=== PATIENT | male | born 1950 | race Caucasian/White ===

== ENCOUNTER → 2021-11-26 | Outpatient (CLI) | payer MEDICARE, BC | END | disposition home or self-care (01) | LOC: PREOP 05:24 | PROVIDERS: ATTEND Podiatrist Foot & Ankle Surgery | DX: Z01.818 Encounter for other preprocedural examination (principal) ==

== ENCOUNTER 2022-02-26 05:19 | Outpatient (CLI) | payer MEDICARE ==
[~2022-02-26] VITALS: Ht 200 cm; Wt 127.0 kg
[2022-02-26] MEDS ORDERED: B/P PILL (12:38)
[2022-02-26] MEDS ORDERED: METF-397 PO (12:38)
[2022-02-26] MEDS ORDERED: GABA-490 PO (12:38)
== END 2022-02-26 12:58 | disposition home or self-care (01) ==
LOC: PREOP 05:19
PROVIDERS: ATTEND Podiatrist Foot & Ankle Surgery
DX: Z01.818 Encounter for other preprocedural examination (principal)

== ENCOUNTER 2022-03-04 05:51 | Day surgery (SDC) | payer MEDICARE ==
[2022-03-04] VITALS (10 sets, daily range): BP systolic 101–136; BP diastolic 55–90
[~2022-03-04] VITALS: Ht 200 cm; Wt 127.0 kg
[~2022-03-04 05:51] MED LIST: B/P PILL; GABA-490 PO; METF-397 PO
[2022-03-04] MEDS ORDERED: ceFAZolin INJECTION 1,000 MG in NS (IVPB) 50 ML IV ONE (06:15)
[2022-03-04] MEDS ORDERED: FINA5TAB6 PO (06:59)
[2022-03-04] MEDS ORDERED: LISI10TA25 PO (06:59)
[2022-03-04] MEDS ORDERED: MTP25TSR PO (06:59)
[2022-03-04] MEDS ORDERED: ASPI-999 PO (06:59)
[2022-03-04] MEDS ORDERED: TMSL.4C PO (06:59)
[2022-03-04] MEDS ORDERED: METF-399 PO (06:59)
[2022-03-04] MEDS ORDERED: GBPN600T PO (06:59)
[2022-03-04] MEDS ORDERED: SPIR25TA5 PO (06:59)
[2022-03-04] MEDS: LACTATED RINGERS 1,000 ML IV PRN ×2 (07:04→09:20)
[2022-03-04] MEDS ORDERED: MIDAZOLAM 2 MG/2 ML (VERSED) VIAL ONE (07:12)
[2022-03-04] MEDS ORDERED: LIDOCAINE PF 2% 5 ML (XYLOCAINE) VIAL ONE (07:12)
[2022-03-04] MEDS ORDERED: proPOfol 200 MG/20 ML (DIPRIVAN) VIAL IV ONE ×2 (07:12→08:22)
[2022-03-04] MEDS ORDERED: SEVOFLURANE (ULTANE) 15 ML INHAL SOLN ONE ×2 (07:12→10:10)
[2022-03-04] MEDS ORDERED: fentaNYL INJ 100 MCG/2 ML AMP ONE (07:12)
[2022-03-04] MEDS ORDERED: BUPIVACAINE 0.5% 30 ML (SENSORCAINE) VIAL ONE (07:27)
[2022-03-04] MEDS ORDERED: LIDOCAINE 1% INJ 20 ML VIAL ONE (07:27)
--- NOTE | 2022-03-04 07:51 | Progress Note-Pre Operative ---
Pre-Operative Progress Note Date of Available H&P: Mar 04, 2022 Date H&P Reviewed: Mar 04, 2022 Time H&P Reviewed: 07:50 Pre-Operative Diagnosis: Hallux Rigidus, 2nd hammertoe, right foot FLORINA HANCOCK DPM Mar 04, 2022 07:51
[2022-03-04] MEDS ORDERED: ONDANSETRON 4 MG/2 ML (SDV) Z0FRAN ONE (08:22)
--- NOTE | 2022-03-04 10:36 | Progress Note-Post Operative ---
Post-Operative Progess Note Surgeon (s)/Catering Director (s) Surgeon FLORINA HANCOCK DPM Catering Director: none Pre-Operative Diagnosis Hallux Rigidus, 2nd hammertoe, right foot Post-Operative Diagnosis Same plus hypertrophic 2nd metatarsal, arthritis, gout Procedure & Operative Findings Date of Procedure 03/04/22 Procedure Performed/Findings Cheilectomy, Arthrodesis of the interphalangeal joint hallux, 2nd metatarsal osteotomy, reduction of 2nd hammertoe, all right foot. Anesthesia Type general Estimated Blood Loss Estimated blood loss (mL): minimal Specimens/Packing Specimens Removed right 1st metatarsal head bone and tophi FLORINA HANCOCK DPM Mar 04, 2022 10:36
[2022-03-04] MEDS ORDERED: ACHD5005 PO (10:39)
[2022-03-04] MEDS ORDERED: CEPH500C PO (10:39)
--- NOTE | 2022-03-04 10:39 | Anesthesia-General Post-Op ---
General Patient Condition Mental Status/LOC: Same as Preop Cardiovascular: Satisfactory Nausea/Vomiting: Absent Respiratory: Satisfactory Pain: Controlled Complications: Absent Post Op Complications Complications None Follow Up Care/Instructions Patient Instructions None needed. Anesthesia/Patient Condition Patient Condition Patient is doing well, no complaints, stable vital signs, no apparent adverse anesthesia problems. No complications reported per nursing. WILLI BRUNER CRNA Mar 04, 2022 10:39
[2022-03-04] MEDS ORDERED: fentaNYL INJ 100 MCG/2 ML AMP IVP ONE (10:45)
[2022-03-04] MEDS ORDERED: HYDROcodone/APAP 5 MG/325 MG (LORTAB) TAB PO PRN (10:45)
[2022-03-04] MEDS ORDERED: ONDANSETRON 4 MG/2 ML (SDV) Z0FRAN IVP PRN (10:45)
[2022-03-04] MEDS ORDERED: LACTATED RINGERS 1,000 ML IV SCH (10:45)
--- NOTE | 2022-03-04 11:08 | Diagnostic Imaging Report ---
INDICATION: Right foot pain. IMPRESSION: Two views of the right foot show post surgical changes from pinning of the interphalangeal joints of the 1st and 2nd toes. The patient has had an osteotomy of the interphalangeal joint of the big toe and the distal aspect of the proximal phalanx of the 2nd toe. IMPRESSION: Good alignment of the 1st and 2nd toes following osteotomies and internal fixation. Dictated by: Dictated on workstation # [id number]
[2022-03-04] MEDS ORDERED: HYDROcodone/APAP 5 MG/325 MG (LORTAB) TAB ONE (12:07)
--- NOTE | 2022-03-04 13:27 | Physical Therapy Ortho Eval ---
PT Orthopedic Evaluation Type of Surgery Hallux Rigidus, 2nd hammertoe, right foot Prior Level of Function Locomotion (Upon Admit): Independent Established Durable Medical Eq: None Subjective Entry Into Home: Stairs With Railing Other Obstacles: declined Motor Control Motor Control: Motor Control WNL ROM ROM: WFL, except focal deficit Strength Strength: WFL Transfer SCALE: Activities may be completed with or without assistive devices. 0-Aalfexfyar-wyzhyod completes the activity by him/herself with no assistance from a helper. 5-Set-up or Clean-up Assistance-helper sets up or cleans up; patient completes activity. [place] assists only prior to or following the activity. 4-Supervision or Touching Assistance-helper provides verbal cues and/or touching/steadying and/or contact guard assistance as patient completes activity. Assistance may be provided throughout the activity or intermittently. 3-Partial/Moderate Assistance-helper does LESS THAN HALF the effort. [place] lift s, holds or supports trunk or limbs, but provides less than half the effort. 2-Substantial/Maximal Assistance-helper does MORE THAN HALF the effort. [place] lifts or holds trunk or limbs and provides more than half the effort. 1-Whmcbwosi-uawsmz does ALL the effort. Patient does none of the effort to complete the activity. Or, the assistance of 2 or more helpers is required for the patient to complete the activity. If activity was not attempted, code reason: 7-Patient Refused. 9-Not Applicable-not attempted and the patient did not perform the activity before the current illness, exacerbation or injury. 10-Not Attempted due to Environmental Limitations-(lack of equipment, weather restraints, etc.). 88-Not Attempted due to Medical Conditions or Safety Concerns. Transfers (B, C, W/C) (QC): 6 Gait Gait Assistive Device: Crutches Right Lower Extremity: Right Weight Bearing Status RLE: Partial Weight Bearing Left Lower Extremity: Left Weight Bearing Status LLE: Full Weight Bearing Other Weight Bearing Inst.: Minimal weight to the right forefoot unable to comply with PWB right foot Distance: 150' Summary/Comments fast pace gait sequence with minimal compliance with PWB right foot. Treatment Rendered Treatment: Gait Train, Reviewed Precautions Assessment/Goals Goal Time Frame: 1 Visit Plan Treatment Plan: Discharge Education with patient on PWB right foot with crutches. Patient appeared anxious to leave. Time Time In: 1245 Time Out: 1255 Total Billed Treatment Time: 0 Billed Treatment Time 1 visit Educ 10 min AKIRA GUZMAN PT Mar 04, 2022 13:27
--- NOTE | 2022-03-04 20:23 | OPERATIVE REPORT ---
DATE OF SERVICE: 03/04/2022 SURGEON: Jessica Rogel DPM PREOPERATIVE DIAGNOSES: 1. Hallux rigidus, right. 2. Hallux valgus, right with degenerative joint disease. 3. Hypertrophic right second metatarsal. 4. Contracted hammertoe, right second digit. POSTOPERATIVE DIAGNOSES: 1. Hallux rigidus, right. 2. Hallux valgus, right with degenerative joint disease. 3. Hypertrophic right second metatarsal. 4. Contracted hammertoe, right second digit. 5. Tophaceous gout. 6. Subluxed right second metatarsophalangeal joint with degenerative joint disease. PROCEDURES: 1. Cheilectomy, right foot. 2. Arthrodesis with screw fixation, right hallux interphalangeal joint. 3. Second metatarsal osteotomy with screw fixation. 4. Reduction of hammertoe with K-wire and TenoTac. WOUND CLASS: Clean. ANESTHESIA: General. HEMOSTASIS: Pneumatic thigh tourniquet at 250 mmHg. INDICATIONS: This 71-year-old male presents complaining of constant wound and pressure to the medial aspect of the right hallux. 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 The patient is agreeable to surgical intervention after risks and complications were discussed at length. No guarantees were extended to the patient and he is willing to proceed. DESCRIPTION OF PROCEDURE: The patient was brought back to the operating table and placed in secure supine position. A general anesthetic was then induced. Appropriate timeout was performed. A pneumatic thigh tourniquet was placed on the right lower extremity over several layers of padding. The right foot was then prepped and draped in the normal sterile manner. The right foot was then elevated and allowed to exsanguinate after which the tourniquet was inflated to 250 mmHg. Attention was then directed to the dorsal aspect of the right first metatarsophalangeal joint where a 6 cm longitudinal linear incision was created. The incision was deepened in the same plane with great care to identify and retract all vital neurovascular structures. The incision was deepened down to the capsule where a longitudinal capsulotomy was performed to the first metatarsophalangeal joint. This exposed the hypertrophic medial eminence as well as dorsal spurring to the first metatarsal head and the base of the proximal phalanx. These areas were treated with power sagittal saw to reduce the bony eminences. Further contoured and smoothed with a power daquan. It was quite evident as we opened up the capsule, there is white chalky like material consistent with tophaceous gout. Several areas of full-thickness degeneration of the articular cartilage to the first metatarsal head was noted, especially medially. The wound was flushed with copious amounts of normal saline. Improved range of motion was appreciated to the first metatarsophalangeal joint. The incision was extended from medial to lateral overlying the interphalangeal joint of the right hallux where there is significant lateral deviation and plantar contracture, which was rigid at the interphalangeal joint. The incision was then deepened down to the extensor tendon and a transverse tenotomy was performed. Next, utilizing a power sagittal saw, the articular cartilage of the head of the proximal phalanx and base of the distal phalanx were performed. They were done in such a way that there was a bias with greater bone taking medially, allowing for reduction of the hallux valgus deformity of the distal aspect of the digit. The base of the distal phalanx and the head of the proximal phalanx area were fenestrated after which a Waldron 28, 4.0 headless screw of 46 mm was driven from distal to proximal overlying a guidewire. Of course, this was done through the hyponychium area with a small 0.5 cm incision created. Excellent bony apposition and fixation was appreciated at this time. The wound was flushed with copious amounts of normal saline before and after fixation. Closure was then performed in layers to the first and second procedures utilizing 3-0 Vicryl for deep closure, 4-0 Vicryl for superficial and skin closure was performed with 4-0 Prolene in a horizontal mattress type stitch. Attention was then directed to the dorsal aspect of the right second metatarsophalangeal joint where a 5 cm longitudinal linear incision was created. The incision was deepened down to the extensor tendon where the slide lengthening was performed over the proximal phalanx. The extensor tendon was extended distally and proximally exposing the dorsal aspect of the second metatarsophalangeal joint. Once this was performed, the extensor dobbs was released to the second metatarsophalangeal joint. The medial and lateral collateral ligaments were also resected. This demonstrated that the base of the proximal phalanx was articulated with the dorsal aspect of the second metatarsal at the surgical neck. Next, the digit was re-articulated, after which a Hilary-type osteotomy was performed. The capital fragment was translocated proximally and fixated in its corrected position utilizing snap-off screws that which were 2.0. The most distal and first was 14 mm length and the second was 12 mm of length. Excellent bony apposition fixation was appreciated at this time. The excess bone to this second metatarsal head was resected with a rongeur followed by contouring with a power daquan. The proximal phalanx continued to want to sublux dorsally. It was then decided that a flexor tenodesis should be performed with the Waldron 28 TenoTac system that is 2.0 soft tissue fixation system. A small incision was created at the inferior aspect of the proximal phalanx, right second toe where a guidewire was driven. Next, over the guidewire utilizing the Waldron 28 TenoTac system, under drill was performed from inferior to superior, after which the male portion with the TenoTac was introduced to the inferior aspect of the proximal phalanx after a 1 cm incision was created. This allowed for fixation of the flexor tendons to the base of the proximal phalanx after the female portion of the TenoTac was driven from dorsal to plantar. This reduced the amount of dorsiflexion naturally exhibited at the right second metatarsophalangeal joint. The wound was flushed with copious amounts of normal saline. Attention was then directed to the proximal phalanx head where utilizing power sagittal saw and a power daquan, the head was created into a PEG and the base of the middle phalanx had a power daquan applied creating a hole for the peg-in-hole type arthrodesis. A 0.054 K-wire was driven from dorsal to proximal across the arthrodesis site, securing it securely. The excess K-wire at the end of the toe was cut and a protective ball placed over the end of the wire. The wound was flushed with copious amounts of normal saline throughout the procedure. Closure was then performed in layers. The extensor tendon was repaired in an extended position utilizing 3-0 Vicryl, superficial closure was performed with 4-0 Vicryl, skin closed with 4-0 Prolene in a horizontal mattress type stitch. Postoperative injection consisted of 24 mL of 0.5% Marcaine injected in a local infusion to the surgical sites. Postoperative dressing consisted of Betadine-soaked Adaptic, sterile 4 x 4's, sterile Kerlix, all secured with a Coban wrap. The patient tolerated the anesthesia and procedure well and was transported from the operating room to the recovery area with vital signs stable and vascular status intact to all digits of the right foot. He is to follow up in my office in 10 days period time or sooner if necessary. He is given a prescription for Keflex and Vicodin. He is to be partially weightbearing on the right lower extremity with crutches. Job ID: [id number] DocumentID: [id number] Dictated Date: 03/04/2022 10:52:57 Occupational Health Nursing Director Date: 03/04/2022 20:21:00 Dictated By: CONI ISRAEL
== END 2022-03-04 12:55 | disposition home or self-care (01) ==
LOC: SDC 05:51
PROVIDERS: ATTEND Podiatrist Foot & Ankle Surgery
DX: M20.11 Hallux valgus (acquired), right foot (principal); M20.21 Hallux rigidus, right foot; M20.41 Other hammer toe(s) (acquired), right foot; M1A.0711 Idiopathic chronic gout, right ankle and foot, with tophus (tophi); S93.144A Subluxation of metatarsophalangeal joint of right lesser toe(s), initial encounter; M89.371 Hypertrophy of bone, right ankle and foot; E11.65 Type 2 diabetes mellitus with hyperglycemia; I48.0 Paroxysmal atrial fibrillation; Z28.310 Unvaccinated for COVID-19; X58.XXXA Exposure to other specified factors, initial encounter
CPT/HCPCS: 28285; 28289; 28308; 28750; 73620; 82947; 87081; C1713 ×4; 88305